=== PATIENT | female | born 1970 | race Two or more races ===

== ENCOUNTER 2016-12-21 16:30 | Emergency (ER) | payer MEDICAID ==
[~2016-12-21] VITALS: Ht 165.1 cm; Wt 67.1 kg
[~2016-12-21 16:30] MED LIST: IBUP800T PO; OMEG1CAP34 PO; VIT B12 PO
[2016-12-21 18:07] VITALS: BP 177/95
[2016-12-21] MEDS ORDERED: MAALOX/HYOSCYAMINE/LIDOCAINE 45 ML BOTTLE PO ONE (18:30)
[2016-12-21] MEDS ORDERED: SILVER SULF. CRM 1% , 25GM TP ONE (18:30)
[2016-12-21] MEDS ORDERED: MAALOX/HYOSCYAMINE/LIDOCAINE 45 ML BOTTLE ONE (18:36)
[2016-12-21] MEDS ORDERED: SILVER SULF. CRM 1%, 50GM ONE (18:36)
[2016-12-21 19:24] LABS: BLOOD UREA NITROGEN 7 mg/dL (7-18)
[2016-12-21 19:27] LABS: ASPARTATE AMINO TRANSFERASE 35 U/L (15-37)
== END 2016-12-21 19:53 | disposition home or self-care (01) ==
LOC: ED 19:47
DX: T23.201A Burn of second degree of right hand, unspecified site, initial encounter (principal); R10.12 Left upper quadrant pain; S69.91XA Unspecified injury of right wrist, hand and finger(s), initial encounter; X58.XXXA Exposure to other specified factors, initial encounter; Y93.89 Activity, other specified; Y99.8 Other external cause status; Y92.009 Unspecified place in unspecified non-institutional (private) residence as the place of occurrence of the external cause
CPT/HCPCS: 16020; 36415; 76700; 80053; 83690; 85025

== ENCOUNTER 2017-03-22 15:39 | Emergency (ER) | payer MEDICAID ==
[~2017-03-22] VITALS: Ht 165.1 cm; Wt 67.7 kg
[2017-03-22] MEDS ORDERED: ONDANSETRON 2MG/ML, 2ML IVPush ONE (16:00)
[2017-03-22] MEDS ORDERED: SODIUM CHLORIDE 0.9% 1,000ML IVBOLUS ONE (16:00)
[2017-03-22] MEDS ORDERED: MAALOX/HYOSCYAMINE/LIDOCAINE 45 ML BTL PO ONE ×2 (16:00→19:00)
[2017-03-22] MEDS ORDERED: SODIUM CHLORIDE FLUSH 10ML SYR IVF ONE (17:00)
[2017-03-22 18:02] LABS: ASPARTATE AMINO TRANSFERASE 23 U/L (15-37); BLOOD UREA NITROGEN 11 mg/dL (7-18); HEMATOCRIT 45.1 % (34.6-47.8); WHITE BLOOD COUNT 9.5 x10^3/uL (3.4-10)
[2017-03-22] MEDS ORDERED: ONDANSETRON ODT 4 MG ONE (18:40)
[2017-03-22] MEDS ORDERED: MAALOX/HYOSCYAMINE/LIDOCAINE 45 ML BTL ONE (18:40)
[2017-03-22 18:42] VITALS: BP 121/70
[2017-03-22] MEDS ORDERED: ONDANSETRON ODT 4 MG PO ONE (19:00)
== END 2017-03-22 19:20 | disposition left against medical advice (07) ==
LOC: ED 18:58
DX: K29.20 Alcoholic gastritis without bleeding (principal); K21.9 Gastro-esophageal reflux disease without esophagitis
CPT/HCPCS: 36415; 76700; 76830; 80053; 83690; 84703; 85025; 93005; 99285; Q0162